=== PATIENT | female | born 1990 | race Caucasian/White ===

== ENCOUNTER 2019-05-22 17:29 | Emergency (ER) | payer BC ==
[~2019-05-22] VITALS: Ht 160 cm; Wt 76.2 kg
--- NOTE | 2019-05-22 18:04 | PHYS DOC ---
Adult General Chief Complaint Chief Complaint: ABDOMINAL PAIN HPI HPI 28-year-old female presents with intermittent menstrual bleeding for the last few months. She has had consistent bleeding for the last 7 days. The volume of bleeding varies from a normal menses to very little spotting. She is on oral bi rth control. She did miss 1 pill this month, but immediately restarted the next day. She is sexually active. She was diagnosed with herpes, for which she takes preventative acyclovir, 5 years ago. She thinks she may have a slight change in her vaginal discharge, but she is not sure. She has been seen by her primary care physician who did a pelvic exam with swabs about a month ago and everything was reportedly normal. She has not had an ultrasound or CT scan. She has not had a test. She has some mild lower suprapubic pain that is a cramping sensation. She denies fever. She has had 2 abnormal Pap smears in the past that resolved without treatment. Review of Systems Review of Systems Constitutional: Denies fever [] Eyes: Denies change in visual acuity, redness, or eye pain [] HENT: Denies nasal congestion or sore throat [] Respiratory: Denies cough or shortness of breath [] Cardiovascular: No additional information not addressed in HPI [] GI: Mild suprapubic abdominal pain. Denies nausea, vomiting, bloody stools or diarrhea [] : Denies dysuria or hematuria. Vaginal bleeding [] Musculoskeletal: Denies back pain or joint pain [] Integument: Denies rash or skin lesions [] Neurologic: Denies headache, focal weakness or sensory changes [] Endocrine: Denies polyuria or polydipsia [] All other systems were reviewed and found to be within normal limits, except as documented in this note. Allergies Allergies Allergies Coded Allergies Type Severity Reaction Last Updated Verified escitalopram Allergy Severe S.I. Thoughts 05/22/19 Yes Physical Exam Physical Exam Constitutional: Well developed, well nourished, no acute distress, non-toxic appearance. [] HENT: Normocephalic, atraumatic, bilateral external ears normal, oropharynx moist, no oral exudates, nose normal. [] Eyes: PERRLA, EOMI, conjunctiva normal, no discharge. [] Neck: Normal range of motion, no tenderness, supple, no stridor. [] Cardiovascular:Heart rate regular rhythm, no murmur [] Lungs & Thorax: Bilateral breath sounds clear to auscultation [] Abdomen: Bowel sounds normal, soft, no tenderness, no masses, no pulsatile masses. [] Skin: Warm, dry, no erythema, no rash. [] Back: No tenderness, no CVA tenderness. [] Extremities: No tenderness, no cyanosis, no clubbing, ROM intact, no edema. [] Neurologic: Alert and oriented X 3, normal motor function, normal sensory function, no focal deficits noted. [] Psychologic: Affect normal, judgement normal, mood normal. [] Current Patient Data Lab Results Laboratory Tests Test 05/22/19 17:50 POC Urine HCG, Qualitative hcg negative (Negative) EKG EKG [] Radiology/Procedures Radiology/Procedures [] Impressions: Study: CT abdomen/pelvis with intravenous contrast Indication: Acute on chronic abdominal pain. Comparison: None. Technique: Helical CT imaging performed of the abdomen and pelvis after the intravenous administration of 75 cc Omnipaque 300 contrast. Sagittal and coronal reformats were obtained. One or more of the following individualized dose reduction techniques were utilized for this examination: 1. Automated exposure control 2. Adjustment of the mA and/or kV according to patient size 3. Use of iterative reconstruction technique. Findings: Tiny low-attenuation foci within the right and left hepatic lobes, both seen on image 8 series 2, most likely small cysts or hemangiomas. Unremarkable gallbladder, pancreas, spleen and adrenal glands. Subcentimeter low-attenuation focus within the left kidney, image 26 series 2, most likely a cyst. Symmetric enhancement pattern of the kidneys. No hydroureteronephrosis. The urinary bladder is unremarkable. The uterus is within normal limits. No adnexal mass. Mildly constipated state. No pericolonic inflammation. No findings to suggest acute appendicitis. Nonobstructed small bowel. The stomach is within normal limits. Unremarkable vasculature. No free fluid. No pathologically enlarged lymph nodes. Symmetric muscular bulk. No acute or destructive osseous abnormality. No significant degenerative changes. Impression: 1. No acute abnormality seen throughout the abdomen or pelvis to account for the patient's symptoms. 2. Mildly constipated state. Electronically signed by: DONELL GOMEZ MD (05/22/2019 7:41 PM) [facility] Course & Med Decision Making Course & Med Decision Making Pertinent Labs and Imaging studies reviewed. (See chart for details) The patient's labs are unremarkable. Her urinalysis is unremarkable. She has not . Her CT abdomen and pelvis does not show anything but some constipation. I believe she says having intermenstrual bleeding control. She can follow up with her primary care physician to discuss dosing and/or medication changes. She is stable for discharge at this time. [] Dragon Disclaimer Dragon Disclaimer This electronic medical record was generated, in whole or in part, using a voice recognition dictation system. Departure Departure: Impression: Primary Impression: Metrorrhagia Additional Impression: Lower abdominal pain Disposition: HOME, SELF-CARE Condition: STABLE Referrals: TARIQ MUNIZ MD (PCP) Patient Instructions: Metrorrhagia, [id number] Problem Qualifiers TERRY GABRIEL DO May 22, 2019 18:04
[2019-05-22 18:11] LABS: BACTERIA,URINE FEW /HPF (0-FEW); BILIRUBIN,URINE NEG (NEG); CLARITY,URINE CLEAR; COLOR,URINE YELLOW; GLUCOSE,URINE NEG (NEG); NITRITE,URINE NEG (NEG); RBC,URINE RARE /HPF (0-2); SQUAMOUS EPITHELIAL CELL,UR OCC /LPF; UROBILINOGEN,URINE 0.2 mg/dL (0.2 mg/dL); WBC,URINE 0 /HPF (0-4)
[2019-05-22] MEDS ORDERED: IOHEXOL 300 MG/ML 75 ML VIAL. IV ONE (18:30)
[2019-05-22 18:49] LABS: BASO % 1 % (0-3); EOS # 0.1 x10^3/uL (0.0-0.7); EOS % 1 % (0-3); HEMATOCRIT 42.1 % (36.0-47.0); HEMOGLOBIN 13.8 g/dL (12.0-15.5); LYMPH # 3.3 x10^3/uL (1.0-4.8); LYMPH % 37 % (24-48); MEAN CORPUSCULAR HEMOGLOBIN 29 pg (25-35); MEAN CORPUSCULAR HGB CONC 33 g/dL (31-37); MEAN CORPUSCULAR VOLUME 90 fL (79-100); MONO # 0.6 x10^3/uL (0.0-1.1); MONO % 7 % (0-9); NEUT # 4.9 x10^3uL (1.8-7.7); NEUT % 55 % (31-73); PLATELET COUNT 236 x10^3/uL (140-400); RED CELL DISTRIBUTION WIDTH 12.9 % (11.5-14.5); WHITE BLOOD COUNT 8.9 x10^3/uL (4.0-11.0)
[2019-05-22 19:03] LABS: ALBUMIN 4.1 g/dL (3.4-5.0); CALCIUM 9.3 mg/dL (8.5-10.1); CREATININE 0.8 mg/dL (0.6-1.0); GFR 84.2; TOTAL BILIRUBIN 0.3 mg/dL (0.2-1.0); TOTAL PROTEIN 8.3 g/dL (6.4-8.2)
--- NOTE | 2019-05-22 19:43 | RAD ---
Study: CT abdomen/pelvis with intravenous contrast Indication: Acute on chronic abdominal pain. Comparison: None. Technique: Helical CT imaging performed of the abdomen and pelvis after the intravenous administration of 75 cc Omnipaque 300 contrast. Sagittal and coronal reformats were obtained. One or more of the following individualized dose reduction techniques were utilized for this examination: 1. Automated exposure control 2. Adjustment of the mA and/or kV according to patient size 3. Use of iterative reconstruction technique. Findings: Tiny low-attenuation foci within the right and left hepatic lobes, both seen on image 8 series 2, most likely small cysts or hemangiomas. Unremarkable gallbladder, pancreas, spleen and adrenal glands. Subcentimeter low-attenuation focus within the left kidney, image 26 series 2, most likely a cyst. Symmetric enhancement pattern of the kidneys. No hydroureteronephrosis. The urinary bladder is unremarkable. The uterus is within normal limits. No adnexal mass. Mildly constipated state. No pericolonic inflammation. No findings to suggest acute appendicitis. Nonobstructed small bowel. The stomach is within normal limits. Unremarkable vasculature. No free fluid. No pathologically enlarged lymph nodes. Symmetric muscular bulk. No acute or destructive osseous abnormality. No significant degenerative changes. Impression: 1. No acute abnormality seen throughout the abdomen or pelvis to account for the patient's symptoms. 2. Mildly constipated state. Electronically signed by: DONELL GOMEZ MD (05/22/2019 7:41 PM) [facility]
== END 2019-05-22 18:58 | disposition home or self-care (01) ==
LOC: ER 17:29
DX: N92.1 Excessive and frequent menstruation with irregular cycle (principal); Z88.8 Allergy status to other drugs, medicaments and biological substances
CPT/HCPCS: 36415; 74177; 80053; 81001; 81025; 85025; 99285

== ENCOUNTER 2020-11-10 23:32 | Emergency (ER) | payer BC ==
[~2020-11-10] VITALS: Ht 160 cm; Wt 85.8 kg
[2020-11-11 00:23] LABS: BASO % 0 % (0-3); EOS # 0.3 x10^3/uL (0.0-0.7); EOS % 3 % (0-3); HEMATOCRIT 40.1 % (36.0-47.0); HEMOGLOBIN 13.3 g/dL (12.0-15.5); LYMPH # 3.6 x10^3/uL (1.0-4.8); LYMPH % 30 % (24-48); MEAN CORPUSCULAR HEMOGLOBIN 30 pg (25-35); MEAN CORPUSCULAR HGB CONC 33 g/dL (31-37); MEAN CORPUSCULAR VOLUME 91 fL (79-100); MONO # 0.8 x10^3/uL (0.0-1.1); MONO % 7 % (0-9); NEUT # 7.2 x10^3uL (1.8-7.7); NEUT % 60 % (31-73); PLATELET COUNT 241 x10^3/uL (140-400); RED BLOOD COUNT 4.43 x10^6/uL (3.50-5.40); RED CELL DISTRIBUTION WIDTH 13.5 % (11.5-14.5)
[2020-11-11 00:29] LABS: CALCIUM 9.5 mg/dL (8.5-10.1); CREATININE 0.6 mg/dL (0.6-1.0); GFR 115.9; POTASSIUM 3.9 mmol/L (3.5-5.1)
[2020-11-11 00:30] LABS: BACTERIA,URINE FEW /HPF (0-FEW); BILIRUBIN,URINE NEG (NEG); CLARITY,URINE HAZY; COLOR,URINE YELLOW; GLUCOSE,URINE NEG (NEG); NITRITE,URINE NEG (NEG); RBC,URINE >40 /HPF (0-2); SQUAMOUS EPITHELIAL CELL,UR FEW /LPF; UROBILINOGEN,URINE 0.2 mg/dL (0.2 mg/dL); WBC,URINE >40 /HPF (0-4)
[2020-11-11 00:35] LABS: ALBUMIN 2.7 g/dL (3.4-5.0); ALBUMIN/GLOBULIN RATIO 0.6 (1.0-1.7); MAGNESIUM 1.9 mg/dL (1.8-2.4); TOTAL BILIRUBIN 0.3 mg/dL (0.2-1.0)
--- NOTE | 2020-11-11 01:41 | PHYS DOC ---
Past History Past Medical History: Hypertension, Other Additional Past Medical Histor: herpes Past Surgical History: Tonsillectomy, Other Additional Past Surgical Histo: D&C Smoking: Non-smoker Alcohol Use: None Drug Use: None General Adult EDM: Chief Complaint: HYPERTENSION HPI: HPI: 30-year-old female presents with report of elevated blood pressure over the past 3 days after giving to daughter at 39 weeks gestation on 11/07/2020 at [facility] with Dr. Perrin. It was noted at time of delivery that patient blood pressure was elevated. Patient does report prior history of hypertension for which she had previously been on lisinopril. Patient was taken off lisinopril during and has not yet started any blood pressure medications. Patient noted that her blood pressure had been elevated tonight on 2 occasions with measurements of 158/100 and 166/106. Patient reports calling her [employer] after hours on-call and spoke with Dr. Perrin's nurse. Nurse advised patient to present immediately to the emergency department for further evaluation and treatment. Denies any shortness of breath. Denies any significant continued bleeding or pelvic pain. Patient reports intermittent slight headache. Review of Systems: Review of Systems: Constitutional: Denies fever or chills Eyes: Denies redness or eye pain HENT: Denies nasal congestion or sore throat Respiratory: Denies cough or shortness of breath Cardiovascular: Denies chest pain or palpitations GI: Denies abdominal pain, nausea, or vomiting : Denies dysuria or hematuria Musculoskeletal: Denies back pain or joint pain Integument: Denies rash or skin lesions Neurologic: Reports headache; denies focal weakness or sensory changes Complete systems were reviewed and found to be within normal limits, except as documented in this note. Allergies: Allergies: Allergies Coded Allergies Type Severity Reaction Last Updated Verified escitalopram Allergy Severe S.I. Thoughts 05/22/19 Yes Physical Exam: PE: Constitutional: Well developed, well nourished, no acute distress, non-toxic appearance HENT: Normocephalic, atraumatic Eyes: PERRL, EOMI, conjunctiva normal, no discharge Neck: Normal range of motion, no tenderness, supple Lungs & Thorax: No respiratory distress, equal chest rise and fall Abdomen: Soft, no tenderness; post gravid abdomen Skin: Warm, dry, no erythema, no rash Back: No tenderness, no CVA tenderness Extremities: No tenderness, ROM intact, no edema Neurologic: Alert and oriented X 3, normal motor function, normal sensory function, no focal deficits noted Psychologic: Affect normal, judgment normal Current Patient Data: Labs: Laboratory Tests Test 11/10/20 23:55 11/11/20 00:07 Urine Collection Type Unknown Urine Color Yellow Urine Clarity Hazy Urine pH 6.5 Urine Specific Sikes 1.020 Urine Protein Neg (NEG-TRACE) Urine Glucose (UA) Neg mg/dL (NEG) Urine Ketones (Stick) Neg mg/dL (NEG) Urine Blood Large (NEG) Urine Nitrite Neg (NEG) Urine Bilirubin Neg (NEG) Urine Urobilinogen Dipstick 0.2 mg/dL (0.2 mg/dL) Urine Leukocyte Esterase Mod (NEG) Urine RBC >40 /HPF (0-2) Urine WBC >40 /HPF (0-4) Urine Squamous Epithelial Cells Few /LPF Urine Bacteria Few /HPF (0-FEW) White Blood Count 12.0 x10^3/uL (4.0-11.0) H Red Blood Count 4.43 x10^6/uL (3.50-5.40) Hemoglobin 13.3 g/dL (12.0-15.5) Hematocrit 40.1 % (36.0-47.0) Mean Corpuscular Volume 91 fL (79-100) Mean Corpuscular Hemoglobin 30 pg (25-35) Mean Corpuscular Hemoglobin Concent 33 g/dL (31-37) Red Cell Distribution Width 13.5 % (11.5-14.5) Platelet Count 241 x10^3/uL (140-400) Neutrophils (%) (Auto) 60 % (31-73) Lymphocytes (%) (Auto) 30 % (24-48) Monocytes (%) (Auto) 7 % (0-9) Eosinophils (%) (Auto) 3 % (0-3) Basophils (%) (Auto) 0 % (0-3) Neutrophils # (Auto) 7.2 x10^3uL (1.8-7.7) Lymphocytes # (Auto) 3.6 x10^3/uL (1.0-4.8) Monocytes # (Auto) 0.8 x10^3/uL (0.0-1.1) Eosinophils # (Auto) 0.3 x10^3/uL (0.0-0.7) Basophils # (Auto) 0.0 x10^3/uL (0.0-0.2) Sodium Level 140 mmol/L (136-145) Potassium Level 3.9 mmol/L (3.5-5.1) Chloride Level 105 mmol/L (98-107) Carbon Dioxide Level 26 mmol/L (21-32) Anion Gap 9 (6-14) Blood Urea Nitrogen 14 mg/dL (7-20) Creatinine 0.6 mg/dL (0.6-1.0) Estimated GFR (Cockcroft-Gault) 115.9 BUN/Creatinine Ratio 23 (6-20) H Glucose Level 93 mg/dL (70-99) Uric Acid 5.0 mg/dL (2.6-6.0) Calcium Level 9.5 mg/dL (8.5-10.1) Magnesium Level 1.9 mg/dL (1.8-2.4) Total Bilirubin 0.3 mg/dL (0.2-1.0) Aspartate Amino Transferase (AST) 153 U/L (15-37) H Alanine Aminotransferase (ALT) 314 U/L (14-59) H Alkaline Phosphatase 106 U/L (46-116) Lactate Dehydrogenase 255 U/L (81-234) H Total Protein 7.0 g/dL (6.4-8.2) Albumin 2.7 g/dL (3.4-5.0) L Albumin/Globulin Ratio 0.6 (1.0-1.7) L Vital Signs: Vital Signs Date Time Temp Pulse Resp B/P (MAP) Pulse Ox O2 Delivery O2 Flow Rate FiO2 11/10/20 23:32 97.4 76 16 158/103 (121) 98 Room Air EKG: EKG: [] Radiology/Procedures: Radiology/Procedures: [] Heart Score: C/O Chest Pain: N/A Course & Med Decision Making: Course & Med Decision Making Pertinent Lab studies reviewed. (See chart for details) Patient presents with HPI and physical exam concerning for pre eclampsia. Patient's blood pressure elevated upon arrival. Labs obtained and posted to chart. AST/ALT elevated. Uric acid and platelet count normal. Blood pressure with interval improvement without medication. Discussed case with Dr. Perrin regarding laboratory findings and change in patient's blood pressure. Dr. Perrin in agreement that patient should be admitted to [facility] on magnesium sulfate drips. Magnesium sulfate bolus provided with 4 g given over 30 minutes. Continuation of 2 g of magnesium every hour also provided. Discussed with Dr. Perrin (OB-WEATHERIZATION ADMINISTRATOR at [facility]) who requests transfer for admission to [facility]. Discussed findings and plan with patient and family, who acknowledge understanding and agreement. Dragon Disclaimer: Dragon Disclaimer: This electronic medical record was generated, in whole or in part, using a voice recognition dictation system. Departure Departure: Impression: Primary Impression: Preeclampsia in period Additional Impression: Elevated LFTs Disposition: 02 SHORT TERM HOSPITAL ([facility]- Dr. Perrin (OB) accepting) Condition: STABLE Referrals: TARIQ MUNIZ MD (PCP) Critical Care Time Critical care time was 30 minutes which includes time at bedside, spent in discussion of patient's care with specialists and/or family members, with interpretation of laboratory and/or radiological studies and is exclusive of pr oceduwatson. JAVIER ERWIN DO November 11, 2020 01:41
[2020-11-11] MEDS ORDERED: MAGNESIUM SULFATE 2GM 50 ML IV ONE ×3 (02:00→03:30)
[2020-11-11 02:15] VITALS: BP 162/111
== END 2020-11-11 03:15 | disposition short-term general hospital (02) ==
LOC: ER 23:32
DX: O11.5 Pre-existing hypertension with pre-eclampsia, complicating the puerperium (principal); R79.89 Other specified abnormal findings of blood chemistry; Z98.890 Other specified postprocedural states; Z88.8 Allergy status to other drugs, medicaments and biological substances
CPT/HCPCS: 36415; 80053; 81001; 83615; 83735; 84550; 85025; 87086; 96365; 96376; 99285; J3475